=== PATIENT | male | born 1995 | race Caucasian/White ===

== ENCOUNTER 2021-04-22 15:48 | Emergency (ER) | payer OTHER, SELFPAY ==
[2021-04-22 15:52] VITALS: BP 164/103; PULSE 107; RESP 18; TEMP 37.3; O2SAT 99
[2021-04-22 16:06] LABS: Basophils Absolute Auto 0.1 K/mm3 (0.0-0.1); Basophils Percent Auto 0.4 % (0.2-1.2); Eosinophils Absolute Auto 0.3 K/mm3 (0-0.3); Eosinophils Percent Auto 2.1 % (0-4.4); Hematocrit 45.6 % (42.0-52.0); Hemoglobin 15.2 g/dL (14.0-18.0); Immature Granulocyte Absolute 0.06 K/mm3 (0.00-0.031); Immature Granulocyte Percent A 0.4 % (0-0.5); Lymphocytes Absolute Auto 4.14 K/mm3 (0.9-3.2); Lymphocytes Percent Auto 29.8 % (18.3-44.2); Mean Corpuscular HGB Conc 33.3 g/dl (32-36); Mean Corpuscular Hemoglobin 27.5 pg (26-34); Mean Corpuscular Volume 82.5 fl (80-100); Mean Platelet Volume 10.8 fl (7.4-10.4); Monocytes Absolute Auto 1.1 K/mm3 (0.1-0.6); Monocytes Percent Auto 7.7 % (2.6-8.5); Neutrophils Absolute Auto 8.3 K/mm3 (1.3-6.7); Neutrophils Percent Auto 59.6 % (45.5-73.1); Platelet Count Result 286 k/mm3 (150-375); Red Blood Count 5.53 M/mm3 (4.6-6.20); Red Cell Distribution Width 13.3 % (11.5-14.5); White Blood Count 13.9 K/mm3 (4.5-10.0)
--- NOTE | 2021-04-22 16:18 | ED.PSYCH ---
HPI - Psych General Chief Complaint: Psychiatric Symptoms <Reymundo Hammonds DO - Last Filed: 04/23/21 01:26> Stated Complaint: psych <Reymundo Hammonds DO - Last Filed: 04/23/21 01:26> Time Seen by Provider: 04/22/21 16:06 <Reymundo Hammonds DO - Last Filed: 04/23/21 01:26> Source: RN notes reviewed <Reymundo Hammonds DO - Last Filed: 04/23/21 01:26> History of Present Illness HPI Narrative: Patient presents emergency department from physician's office for possible suicidal ideation. Patient states he was at his therapist office today he states he been going through a lot of drama with his mother and that he did not want to be at the office today. States he was called back to go in the office and he said this is bull shit. I could just slit my throat . He states that he made this, because he is now but does not have any suicidal ideation he denies any thoughts of wanting to harm himself patient denies any thoughts of going to harm anyone else he denies any recent illness <Reymundo Hammonds DO - Last Filed: 04/23/21 01:26> Related Data Home Medications: Home Medications Medication Instructions Recorded Confirmed albuterol sulfate 2 puff INHALATION QID PRN 04/22/21 clonazepam 0.5 mg PO BID 04/22/21 escitalopram oxalate 10 mg PO DAILY 04/22/21 hydroxyzine HCl 10 mg PO BID PRN 04/22/21 lurasidone [Latuda] 80 mg PO QPM 04/22/21 montelukast 10 mg PO HS 04/22/21 pantoprazole 40 mg PO QAM 04/22/21 <Reymundo Hammonds DO - Last Filed: 04/23/21 01:26> Allergies/Adverse Reactions: Allergies Allergy/AdvReac Type Severity Reaction Status Date / Time cephalexin Allergy Intermediate Rash Verified 04/22/21 15:58 <Reymundo Hammonds DO - Last Filed: 04/23/21 01:26> Review of Systems Review of Systems: Gen.: Denies fevers or chills ENT: Denies congestion Respiratory: Denies shortness of breath or cough CV: Denies chest pain or palpitations GI: Denies abdominal pain nausea, emesis or diarrhea Musculoskeletal: Denies back pain or muscle pain Neuro: Denies numbness, tingling, weakness or focal weakness Skin: Denies rash Psych see HPI Except as documented, all other systems reviewed and negative <Reymundo Hammonds DO - Last Filed: 04/23/21 01:26> [facility] Past Medical History Medical History: Medical History (Updated 04/23/21 @ 01:25 by Reymundo Hammonds DO) Patient denies significant medical history <DO Terry Small Last Filed: 04/23/21 01:26> Social History Social History: Social History (Updated 04/22/21 @ 16:19 by Reymundo Hammonds DO) Smoking status: Current every day smoker Substance use type: does not use <Reymundo Hammonds DO - Last Filed: 04/23/21 01:26> Exam Narrative: APPEARANCE: No acute distress, nontoxic, resting in bed EYES: EOMI HEENT: Normocephalic, atraumatic, OMM RESPIRATORY: No respiratory distress Clear to auscultation bilaterally with no rhonchi wheezing or rales. CARDIOVASCULAR: Regular rate and rhythm without murmurs rubs or gallops. ABDOMINAL: Soft, nontender, nondistended, no rebound or guarding MUSCULOSKELETAl: Moves all extremities. No clubbing, cyanosis or edema. NEURO: Awake and alert. Following commands, speech normal, no focal deficits SKIN:: Warm, dry. No rashes lesions or abrasions PSYCHIATRIC: Denies suicidal ideation, denies homicidal ideation <DO Terry Small Last Filed: 04/23/21 01:26> Course Course Emergency Course: Patient is medically cleared and stable for psychiatric placement and transport Patient evaluated by crisis health professor Clarissa. She spoke with patient as well as mother felt the patient required inpatient placement. Certain petition was filled out will seek placement at this time Updated on plan for inpatient treatment Return over to Every shift change awaiting psychiatric placement <DO Terry Small Last Filed: 04/23/21 01:26> Reevaluation(s) Reevaluati
[2021-04-22 16:21] LABS: Acetaminophen < 10 ug/mL (10-30); Ethanol < 10 mg/dL (<10); Salicylate < 1.0 mg/dL (2-20)
[2021-04-22 16:23] LABS: Alanine Aminotransferase 45 U/L (4-50); Albumin Level 4.9 g/dL (3.5-5.1); Alkaline Phosphatase 76 U/L (38-126); Anion Gap 8 mmol/L (8-16); Aspartate Amino Transferase 31 U/L (17-59); Bilirubin,Total 0.3 mg/dL (0.2-1.3); Blood Urea Nitrogen 13 mg/dL (9-20); Calcium 9.4 mg/dL (8.4-10.2); Carbon Dioxide 28 mmol/L (22-30); Chloride 100 mmol/L (98-107); Estimated CRCL calculation 108 ml/min; Estimated Glomerular Filt Rate > 60; Glucose 118 mg/dL (65-110); Potassium 3.9 mmol/L (3.4-5.0); Sodium 136 mmol/L (137-145)
[2021-04-22 16:43] LABS: Add Urine Microscopic? NO; Appearance Urine Clear (Clear); Bilirubin Urine Negative (Negative); Blood Urine Negative (Negative); Color Urine Yellow (Yellow); Glucose Urine UA Negative (Negative); Ketones Urine Negative (Negative); Leukocyte Esterase Ur Negative LEU/UL (Negative); Nitrate Urine Negative (Negative); Protein Urine Negative (Negative); Specific Grav Ur 1.029 (1.001-1.035); Urobilinogen Urine Negative mg/dL (<2.0)
[2021-04-22 17:13] LABS: Amphetamine Screen Urine Negative (Negative); Barbiturate Screen Urine Negative (Negative); Benzodiazepines Screen Urine Negative (Negative); Cannabinoid Screen Urine Negative (Negative); Cocaine Screen Urine Negative (Negative); Methadone Screen Urine Negative (Negative); Opiate Screen Urine Negative (Negative); Phencyclidine Screen Urine Negative (Negative)
--- NOTE | 2021-04-22 22:03 | PC.NURSE ---
chart faxed to [facility]
[2021-04-22 22:49] LABS: EDCOVIDSCREEN Negative (Negative)
--- NOTE | 2021-04-22 23:32 | PC.NURSE ---
per [facility] in [place], pt would be responsible for paying for services up front d/t not having insurance and they will be unable to accommodate this pt.
--- NOTE | 2021-04-23 02:06 | PC.NURSE ---
called [facility] verified fax # attempted to fax without success
--- NOTE | 2021-04-23 03:19 | PC.NURSE ---
[facility] call will take patient
[2021-04-23 03:22] VITALS: BP 128/86; PULSE 112; RESP 18; TEMP 36.2; O2SAT 100
--- NOTE | 2021-04-23 03:40 | PC.NURSE ---
[facility] call unable to accept patient
[2021-04-23 07:19] VITALS: BP 125/73; PULSE 78; RESP 16; TEMP 36.3; O2SAT 99
[2021-04-23 07:20] VITALS: BP 125/73; PULSE 78; RESP 16; O2SAT 99
== END 2021-04-23 07:26 ==
PROVIDERS: Emergency Medicine; Emergency Provider Emergency Medicine
DX: R45.851 Suicidal ideations (principal); Z20.822 Contact with and (suspected) exposure to COVID-19
CPT/HCPCS: 36415; 80053; 80307; 81003; 84443; 85025; 87426; 99285; C9803

== ENCOUNTER 2023-04-09 10:28 | Emergency (ER) | payer BC, SELFPAY ==
--- NOTE | ~2023-04-09 | XR_ITS ---
EXAMINATION: XR shoulder LT min 2V INDICATION: Left shoulder pain TECHNIQUE: Four views of the left shoulder are submitted. COMPARISON: None FINDINGS: Normal alignment. No fracture. Glenohumeral and acromioclavicular joint spaces are normal. Soft tissues are unremarkable. IMPRESSION: 1. No acute osseous abnormality. Reviewed, dictated and finalized at location [facility]
[2023-04-09 10:31] VITALS: BP 142/85; PULSE 100; RESP 18; TEMP 36.8; O2SAT 100
--- NOTE | 2023-04-09 11:11 | PC.NURSE ---
pt has many complaints to be addressed today. pt states they feel nauseated and dizzy everyday and it makes them feel like they are about to have a seizure. pt states they have never had a seizure before. pt also complains of when they feel dizzy they have hallucinations where reality feels different. pt describes hallucinations as voices that tell him he needs help, but denies command or visual hallucinations. pt also states they get a sharp pain at rectum roughly 3 times a day that is 10/10 pain and it makes them stand up. pt would also like his scrotum assessed. pt denies any significant pmh, procedures, or taking any medications.
--- NOTE | 2023-04-09 12:29 | ECG_ITS ---
Measurements Intervals [place] Rate: 64 P: 21 AR: 141 QRS: 24 QRSD: 109 T: 10 QT: 373 QTc: 387 Interpretive Statements SINUS RHYTHM DELAYED PRECORDIAL R/S TRANSITION BORDERLINE ECG NO PREVIOUS ECG AVAILABLE FOR COMPARISON Electronically Signed On 04-09-2023 20:20:15 [employer] by Vikash Miguel D.O.
--- NOTE | 2023-04-09 12:37 | ED.GENADULT ---
HPI - General Adult General Chief complaint: Unspecified Stated complaint: multiple complaints - lots of problems with body Time Seen by Provider: 04/09/23 11:42 Source: patient Mode of arrival: ambulatory Limitations: no limitations History of Present Illness HPI narrative: This is a 27-year-old male with PMH of schizophrenia who presents to the ED with multiple complaints. Reports the number problems including a shock-like pain in the rectum that occurs on occasion. He also reports that occasionally he feels nauseous and has vomiting associated with lightheadedness. Reports that his skin across his chest will hurt after his cat walks on it. Also reports chronic left shoulder pain and thinks he may have broke this in the past. Denies any recent trauma. States he has been having hallucinations. He is on Aristada monthly injection and has Abilify backup in case he does not get his injection. Reports that he feels medication needs to be adjusted. Denies any SI, HI. Denies fevers, chills, abdominal pain, GI bleeding symptoms. Denies urinary problems. Related Data Home Medications Medication Instructions Recorded Confirmed albuterol sulfate 90 mcg/actuation 2 puff inhalation QID PRN Dyspnea 04/22/21 aerosol inhaler clonazepam 0.5 mg tablet 0.5 mg PO BID 04/22/21 escitalopram oxalate 10 mg tablet 10 mg PO DAILY 04/22/21 hydroxyzine HCl 10 mg tablet 10 mg PO BID PRN Anxiety 04/22/21 lurasidone 80 mg tablet (Latuda) 80 mg PO QPM 04/22/21 montelukast 10 mg tablet 10 mg PO HS 04/22/21 pantoprazole 40 mg tablet,delayed 40 mg PO QAM 04/22/21 release Allergies Allergy/AdvReac Type Severity Reaction Status Date / Time cephalexin Allergy Intermediate Rash Verified 04/09/23 10:29 Review of Systems Review of Systems: All systems as dictated in HPI PMF Past Medical History Medical History (Updated 04/09/23 @ 13:25 by Walt Stauffer PA-C) Patient denies significant medical history Social History Social History (Updated 04/22/21 @ 16:19 by Reymundo Hammonds DO) Smoking status: Current every day smoker Substance use type: does not use Exam Narrative: GENERAL: Well-appearing, well-nourished, and in no acute distress. HEAD: Normocephalic, atraumatic. EYES: PERRLA and EOMI. ENT: Nares clear, no rhinorrhea or epistaxis. Mucous membranes moist. Oropharynx without tonsillar hypertrophy exudate or other lesions. NECK: Supple. No adenopathy or masses. CHEST: No respiratory distress. Clear to auscultation. No wheezes rales or rhonchi HEART: Regular rate and rhythm. No murmur heard. Normal peripheral pulses. ABDOMEN: Soft, nontender, nondistended, normal active bowel sounds. MSK: Normal range of motion. No edema. SKIN: Warm, dry, no rash. NEURO: Alert and oriented x4. No focal deficits. PSYCH: Normal mood and affect. Course Vital Signs Vital signs: Vital Signs Temperature 98.2 F 04/09/23 10:31 Pulse Rate 100 04/09/23 10:31 Respiratory Rate 18 04/09/23 10:31 Blood Pressure 142/85 H 04/09/23 10:31 Pulse Oximetry 100 04/09/23 10:31 Temperature 98.2 F 04/09/23 10:31 Pulse Rate 62 04/09/23 13:30 Respiratory Rate 14 04/09/23 13:30 Blood Pressure 142/85 H 04/09/23 10:31 Pulse Oximetry 100 04/09/23 13:30 Medical Decision Making MDM Narrative Medical decision making narrative: This is a 27-year-old male with schizophrenia who presents to the ED with a multitude of complaints. Unable to narrow down the chief complaint. vitals are normal. We agreed to do some basic labs and to check an x-ray of the shoulder because he has been having chronic shoulder pain. We also agreed upon an EKG which shows sinus rhythm. Left shoulder x-ray normal. Lab work normal. He feels that he needs to have his medications addressed and I advised that he call his psychiatrist for this tomorrow. He was also given referral to PCP to address his chronic complaints. Pt will
[2023-04-09 13:08] LABS: Basophils Percent Auto 0.3 % (0.2-1.2); Eosinophils Absolute Auto 0.1 K/mm3 (0-0.3); Eosinophils Percent Auto 1.2 % (0-4.4); Hemoglobin 14.3 g/dL (14.0-18.0); Immature Granulocyte Absolute 0.02 K/mm3 (0.00-0.031); Immature Granulocyte Percent A 0.2 % (0-0.5); Lymphocytes Absolute Auto 2.39 K/mm3 (0.9-3.2); Mean Corpuscular HGB Conc 32.5 g/dl (32-36); Mean Corpuscular Hemoglobin 26.2 pg (26-34); Mean Corpuscular Volume 80.7 fl (80-100); Mean Platelet Volume 11.1 fl (7.4-10.4); Monocytes Absolute Auto 0.6 K/mm3 (0.1-0.6); Monocytes Percent Auto 6.6 % (2.6-8.5); Neutrophils Absolute Auto 5.7 K/mm3 (1.3-6.7); Neutrophils Percent Auto 64.7 % (45.5-73.1); Platelet Count Result 275 k/mm3 (150-375); Red Blood Count 5.45 M/mm3 (4.6-6.20); Red Cell Distribution Width 13.8 % (11.5-14.5); White Blood Count 8.9 K/mm3 (4.5-10.0)
[2023-04-09 13:18] LABS: Alanine Aminotransferase 28 U/L (6-50); Albumin Level 4.7 g/dL (3.5-5.1); Alkaline Phosphatase 64 U/L (38-126); Anion Gap 11 mmol/L (8-16); Aspartate Amino Transferase 26 U/L (17-59); Bilirubin,Total 0.5 mg/dL (0.2-1.3); Blood Urea Nitrogen 8 mg/dL (9-20); Calcium 9.6 mg/dL (8.4-10.2); Carbon Dioxide 27 mmol/L (22-30); Chloride 102 mmol/L (98-107); Estimated CRCL calculation 127 ml/min; Estimated Glomerular Filt Rate > 60; Glucose 95 mg/dL (65-110); Sodium 140 mmol/L (137-145)
[2023-04-09 13:30] VITALS: PULSE 62; RESP 14; O2SAT 100
== END 2023-04-09 13:31 | disposition home or self-care (01) ==
PROVIDERS: Emergency Provider Physician Assistant
DX: R11.2 Nausea with vomiting, unspecified (principal); M25.512 Pain in left shoulder; G89.29 Other chronic pain; F20.9 Schizophrenia, unspecified; F17.200 Nicotine dependence, unspecified, uncomplicated; R94.31 Abnormal electrocardiogram [ECG] [EKG]
CPT/HCPCS: 36415; 73030; 80053; 85025; 93005; 99283